=== PATIENT | female | born 1945 | race Caucasian/White ===

== ENCOUNTER 2018-10-01 13:35 | Outpatient (CLI) | payer MEDICARE ==
--- NOTE | 2018-10-01 14:46 | Mammography Report ---
Reason: ENCNTR SCREEN MAMMOGRAM FOR MALIGNANT NEOPLASM OF Procedure Date: 10/01/2018 Accession Number: [id number] / [id number] Procedure: MAC - Screening Mammo w/Miguel Angel CPT Code: FULL RESULT: EXAM: Screening Mammo w/Miguel Angel DATE: 10/01/2018 2:24 PM CLINICAL HISTORY: Routine screening. No reported personal history of breast cancer. Family history breast cancer in mother at age 84. TECHNIQUE: (B) - Bilateral CC and MLO views were obtained. COMPARISON: 08/12/2014 through 11/24/2009 PARENCHYMAL PATTERN: (D) - The breasts demonstrate heterogeneously dense fibroglandular parenchyma bilaterally. FINDINGS: Bilateral breasts: There are no suspicious masses, calcifications, or areas of distortion. IMPRESSION: Negative examination. BI-RADS category 1. RECOMMENDATION: (ANNUAL) - Recommend routine annual screening mammography. BI-RADS CATEGORY: (1) - Negative. STANDARD QUALIFYING STATEMENTS: 1. This examination was not reviewed with the aid of Computer-Aided Detection (CAD). 2. A negative or benign imaging report should not preclude biopsy if clinically suspicious findings are present. 3. Dense breasts may obscure an underlying neoplasm. 4. This examination was reviewed with the aid of 3D breast imaging (tomosynthesis).
== END 2018-10-01 13:36 | disposition home or self-care (01) ==
LOC: DI 13:35
PROVIDERS: ATTEND Internal Medicine
DX: Z12.31 Encounter for screening mammogram for malignant neoplasm of breast (principal); Z80.3 Family history of malignant neoplasm of breast
CPT/HCPCS: 77063; 77067

== ENCOUNTER 2018-10-01 13:37 | Outpatient (CLI) | payer MEDICARE ==
--- NOTE | 2018-10-02 09:49 | DEXA Report ---
Reason: SCREENING FOR OSTEOPOROSIS Procedure Date: 10/01/2018 Accession Number: [id number] / [id number] Procedure: DEX - Dexa Spine and/or Hip CPT Code: FULL RESULT: EXAM: Dexa Spine and/or Hip DATE: 10/01/2018 2:37 PM CLINICAL HISTORY: SCREENING FOR OSTEOPOROSIS TECHNIQUE: Dual energy x-ray absorptiometry (DXA) was performed on a [employer] System. Regions measured are the AP Spine, femoral neck, and if needed forearm. COMPARISON: None. In accordance with the International Society for Clinical Densitometry (ISCD) guidelines, data from previous exams may be reanalyzed using current recommendations and techniques. This is done to allow a more accurate basis for comparison with the current study. FINDINGS: The data for the lumbar spine is as follows: BMD (g/cm/cm) T-SCORE Z-SCORE REGION L1 1.015 -1.0 0.4 L2 1.062 -1.1 0.2 L3 1.176 -0.2 1.2 L4 1.255 0.5 1.8 TOTAL 1.138 -0.4 1.0 NOTE: All evaluable vertebrae are used for classification The data for the hip is as follows: BMD (g/cm/cm) T-SCORE Z-SCORE REGION Neck 1.010 -0.2 1.4 TOTAL 1.002 0.0 1.3 NOTE: The femoral neck or total proximal femur, whichever is lowest, is used for classification. IMPRESSION: THE WHO CLASSIFICATION BASED ON THE INTERNATIONAL REFERENCE STANDARD IS NORMAL. THE FRACTURE RISK IS NOT INCREASED. RECOMMENDATION: Patients with diagnosis of osteoporosis or osteopenia should have regular bone mineral density assessment. For those eligible for Medicare, routine testing is allowed once every 2 years. Testing frequency can be increased for patients who have rapidly progressing disease or for those who are receiving medical therapy to restore bone mass. COMMENT: World Health Organization (WHO) definitions for osteoporosis and osteopenia: NORMAL BMD: T-score at -1.0 or higher, fracture risk is low OSTEOPENIA BMD: T-score between -1.0 and -2.5, fracture risk is increased. OSTEOPOROSIS BMD: T-score at -2.5 or lower, fracture risk is high. National Osteoporosis Foundation recommends: 1. Obtain adequate dietary calcium (at least 1200 mg per day) and vitamin D (400-800 international units per day). 2. Participate, as appropriate, in regular weightbearing and muscle-strengthening exercise. 3. Avoid tobacco use and reduce alcohol and caffeine intake. 4. For more detailed information see the website at www.NOF.org.
== END 2018-10-01 13:38 | disposition home or self-care (01) ==
LOC: DI 13:37
PROVIDERS: ATTEND Internal Medicine
DX: Z13.820 Encounter for screening for osteoporosis (principal)
CPT/HCPCS: 77080

== ENCOUNTER 2018-11-28 16:16 | Outpatient (CLI) | payer MEDICARE ==
[2018-11-28 16:41] LABS: CREATININE 0.9 mg/dL (0.4-1.0)
[2018-11-28] MEDS ORDERED: IOVERSOL 320 50 ML VIAL ONE (17:13)
[2018-11-28] MEDS ORDERED: IOVERSOL 320 100 ML VIAL IVP ONE ×2 (17:13→18:23)
[2018-11-28] MEDS ORDERED: IOVERSOL 320 50 ML VIAL PO ONE (18:23)
--- NOTE | 2018-11-28 19:14 | CT Report ---
Reason: ABDOMINAL TENDERNESS Procedure Date: 11/28/2018 Accession Number: [id number] / [id number] Procedure: CT - Abdomen/Pelvis W CPT Code: FULL RESULT: EXAM: CT ABDOMEN AND PELVIS EXAM DATE: 11/28/2018 06:20 PM. CLINICAL HISTORY: ABDOMINAL TENDERNESS. COMPARISONS: None. TECHNIQUE: Routine helical CT imaging was performed through the abdomen and pelvis. IV contrast: OPTI 320 90ML. Enteric contrast: Positive. Reconstructions: Coronal and sagittal. In accordance with CT protocol optimization, one or more of the following dose reduction techniques were utilized for this exam: automated exposure control, adjustment of mA and/or KV based on patient size, or use of iterative reconstructive technique. FINDINGS: Lung Bases: Unremarkable. Liver: Normal. No masses. Gallbladder/Bile Ducts: The gallbladder is not definitely seen. There is no evidence of significant bile duct dilatation. Spleen: Normal. Pancreas: Normal. Adrenal Glands: Normal. Kidneys: Normal. No masses or hydronephrosis. Peritoneal Cavity/Bowel: Normal. No free fluid, free air or adenopathy. No masses or acute inflammatory process. The appendix is well visualized and normal. Pelvic Organs: Mild heterogeneity of the uterus which may be secondary to fibroids. No significant adnexal abnormality is are seen. Vasculature: No aneurysms or other significant abnormality. Bones: No significant abnormality. Other: None. IMPRESSION: Negative contrast enhanced CT of the abdomen and pelvis. No acute solid or hollow viscus organ abnormalities to account for the patient's presentation. ORION The call report notification system was initiated by Dr. Obed Chan at 07:12 PM on 11/28/2018.
== END 2018-11-28 16:17 | disposition home or self-care (01) ==
LOC: DI 16:16
PROVIDERS: ATTEND Internal Medicine
DX: R10.817 Generalized abdominal tenderness (principal)
CPT/HCPCS: 36415; 74177; 82565; Q9967

== ENCOUNTER 2019-01-14 10:10 | Day surgery (SDC) | payer MEDICARE ==
[2019-01-14] MEDS ORDERED: fentaNYL 250 MCG/5 ML VIAL IVP ONE (10:11)
[2019-01-14] MEDS ORDERED: MIDAZOLAM 2 MG/2 ML VIAL IVP ONE (10:11)
[2019-01-14] MEDS ORDERED: LACTATED RINGERS 1,000 ML IV ONE (10:40)
[2019-01-14 12:54] VITALS: BP 115/70
== END 2019-01-14 10:11 | disposition home or self-care (01) ==
LOC: SDS 10:10
PROVIDERS: ATTEND Internal Medicine Gastroenterology
PROC: 0DBF8ZX Excision of Right Large Intestine, Via Natural or Artificial Opening Endoscopic, Diagnostic (ICD-10-PCS; 2019-01-14)
PROC: 0DBG8ZX Excision of Left Large Intestine, Via Natural or Artificial Opening Endoscopic, Diagnostic (ICD-10-PCS; principal; 2019-01-14 11:30)
DX: Z09 Encounter for follow-up examination after completed treatment for conditions other than malignant neoplasm (principal); R19.7 Diarrhea, unspecified; K57.30 Diverticulosis of large intestine without perforation or abscess without bleeding; Z87.19 Personal history of other diseases of the digestive system; Z80.3 Family history of malignant neoplasm of breast
CPT/HCPCS: 45380; J7120

== ENCOUNTER 2019-05-22 12:46 | Outpatient (CLI) | payer MEDICARE | END 2019-05-22 12:47 | disposition critical access hospital (66) | LOC: EMS 12:46 | PROVIDERS: ATTEND Surgery | DX: R07.9 Chest pain, unspecified (principal); R06.02 Shortness of breath; R42 Dizziness and giddiness; M54.2 Cervicalgia; R68.84 Jaw pain | CPT/HCPCS: A0425; A0429 ==

== ENCOUNTER 2019-05-22 13:11 | Emergency (ER) | payer MEDICARE ==
[2019-05-22 13:43] LABS: BILIRUBIN,URINE NEGATIVE (NEGATIVE); GLUCOSE, URINE (UA) NEGATIVE (NEGATIVE); KETONES,URINE (UA) NEGATIVE (NEGATIVE); LEUKOCYTE ESTERASE, URINE NEGATIVE (NEGATIVE); NITRITE,URINE NEGATIVE (NEGATIVE); OCCULT BLOOD,URINE NEGATIVE (NEGATIVE); PROTEIN,URINE NEGATIVE (NEGATIVE); UROBILINOGEN,URINE 0.2 (NORMAL) E.U./dL (NORMAL)
[2019-05-22 13:44] LABS: CLARITY,URINE CLEAR (CLEAR)
[2019-05-22 13:51] LABS: BASOPHILS # (AUTO) 0.1 10^3/uL (0.0-0.1); BASOPHILS % (AUTO) 0.9 %; EOSINOPHILS # (AUTO) 0.1 10^3/uL (0.0-0.7); EOSINOPHILS % (AUTO) 2.2 %; HGB - HEMOGLOBIN 14.5 g/dL (12.0-16.0); LYMPHOCYTES # (AUTO) 1.3 10^3/uL (1.5-3.5); LYMPHOCYTES % (AUTO) 20.9 %; MEAN CORPUSCULAR HEMOGLOBIN 31.6 pg (27.0-31.0); MEAN CORPUSCULAR HGB CONC 33.5 g/dL (32.0-36.0); MEAN CORPUSCULAR VOLUME 94.3 fL (81.0-99.0); MONOCYTES # (AUTO) 0.5 10^3/uL (0.0-1.0); MONOCYTES % (AUTO) 7.2 %; NEUTROPHILS # (AUTO) 4.3 10^3/uL (1.5-6.6); NEUTROPHILS % (AUTO) 68.3 %; PLT - PLATELET COUNT 256 10^3/uL (130-450); RED BLOOD COUNT 4.59 10^6/uL (4.20-5.40); RED CELL DISTRIBUTION WIDTH 12.3 % (12.0-15.0); WHITE BLOOD COUNT 6.4 x10^3/uL (4.8-10.8)
[2019-05-22 14:04] LABS: ALBUMIN 4.4 g/dL (3.2-5.5); ALBUMIN/GLOBULIN RATIO 1.6 (1.0-2.2); BILIRUBIN,TOTAL 0.8 mg/dL (0.2-1.0); CALCIUM 9.2 mg/dL (8.5-10.3); CREATININE 0.9 mg/dL (0.4-1.0); TOTAL PROTEIN 7.1 g/dL (6.7-8.2)
[2019-05-22 14:15] LABS: CREATINE KINASE MB 1.3 ng/mL (0.6-6.3)
--- NOTE | 2019-05-22 15:30 | ED Physician Documentation ---
PD HPI CHEST PAIN - Stated complaint Stated Complaint: CHEST PX - Chief complaint Chief Complaint: Cardiac - History obtained from History obtained from: Patient - History of Present Illness Timing - onset: How many hours ago Timing - onset during: Light activity (she was driving and noted onset of central chest tightness/pain. Lasted about 15 minutes then improved. Pain radia nhung to left side of neck. She was concerned about heart related. So stopped at her physician office. Referred to ER for further evaluation.) Timing - duration: Minutes Timing - details: Abrupt onset, Now resolved (lasted about 15 minutes, resolved without intervention/treatment.). No: Still present Quality: Tightness, Aching, Pain Location: Substernal Radiation: Jaw, Neck Worsened by: No: Exertion, Inspiration Associated symptoms: No: Shortness of air, Nausea, Vomiting, Feeling faint / dizzy Similar symptoms before: Diagnosis (similar episodes dx as esophageal spasms. Had heart stress test in past 2 years. Has history of GERD/gastritis.) Review of Systems Constitutional: denies: Fever, Chills Nose: denies: Rhinorrhea / runny nose, Congestion Throat: denies: Sore throat Respiratory: denies: Cough GI: denies: Abdominal Pain, Nausea, Vomiting, Diarrhea Neurologic: denies: Generalized weakness, Near syncope PD PAST MEDICAL HISTORY - Past Medical History Cardiovascular: High cholesterol Respiratory: None Endocrine/Autoimmune: None GI: None : None HEENT: None Psych: None Musculoskeletal: None Derm: None - Past Surgical History Past Surgical History: Yes General: Cholecystectomy HEENT: Tonsil/Adenoidectomy - Present Medications Home Medications: Ambulatory Orders Medication Instructions Recorded Confirmed Nitroglycerin 0.4 mg SL ONCE PRN #1 bottle 05/22/19 Omeprazole 20 mg PO DAILY #30 capsule. 05/22/19 - Allergies Allergies/Adverse Reactions: Allergies Allergy/AdvReac Type Severity Reaction Status Date / Time No Known Drug Allergies Allergy Verified 05/22/19 13:21 - Social History Does the pt smoke?: No Smoking Status: Never smoker Does the pt drink ETOH?: Yes Does the pt have substance abuse?: No - Immunizations Immunizations are current?: No Immunizations: TDAP >10years/unknown - POLST Patient has POLST: No PD ED PE NORMAL - Vitals Vital signs reviewed: Yes - General General: Alert and oriented X 3, No acute distress, Well developed/nourished - HEENT HEENT: Pharynx benign - Neck Neck: Supple, no meningeal sign, No adenopathy - Cardiac Cardiac: RRR, No murmur - Respiratory Respiratory: No respiratory distress, Clear bilaterally - Abdomen Abdomen: Soft, Non tender - Derm Derm: Normal color, Warm and dry - Extremities Extremities: No edema, No calf tenderness / cord - Neuro Neuro: Alert and oriented X 3, No motor deficit, Normal speech Results - Vitals Vitals: Vital Signs - 24 hr 05/22/19 05/22/19 05/22/19 13:21 15:22 15:44 Temperature 36.5 C Heart Rate 73 72 Respiratory 14 23 Rate Blood Pressure 130/70 137/95 H Blood Pressure 142/80 H [Left] O2 Saturation 99 96 05/22/19 16:07 Temperature 36.5 C Heart Rate 70 Respiratory 18 Rate Blood Pressure 135/78 H Blood Pressure [Left] O2 Saturation 96 Oxygen O2 Source Room air - EKG (time done) 13:19 Rate: Rate (enter#) (61) Rhythm: NSR [place]: Normal Intervals: Normal UT QRS: Normal Ischemia: Normal ST segments. No: ST elevation c/w ischemia, ST depression - Labs Labs: Laboratory Tests 05/22/19 05/22/19 05/22/19 13:05 13:45 13:45 WBC RBC Hgb Hct MCV MCH MCHC RDW Plt Count MPV Neut # (Auto) Lymph # (Auto) [place] # (Auto) Eos # (Auto) Baso # (Auto) Absolute Nucleated RBC Nucleated RBC % Sodium 140 Potassium 3.4 L Chloride 104 Carbon Dioxide 27 Anion Gap 9.0 BUN 14 Creatinine 0.9 Estimated GFR (MDRD) 61 L Glucose 98 Calcium 9.2 Total Bilirubin 0.8 AST 18 ALT 18 Alkaline Phosphatase 81 Total Creatine Kinase 111 CK-MB (CK-2) 1.3 Troponin I High Sens < 2.3 L Total Protein 7.1 Albumin 4.4 Globulin 2.7 Albumin/Globulin Ratio 1.6 Lipase 44 Urine Color YELLOW Urine Clarity CLEAR Urine pH 6.0 Ur Specific [place] 1.010 Urine Protein NEGATIVE Urine Glucose (UA) NEGATIVE Urine Ketones NEGATIVE Urine Occult Blood NEGATIVE Urine Nitrite NEGATIVE Urine Bilirubin NEGATIVE Urine Urobilinogen 0.2 (NORMAL) Ur Leukocyte Esterase NEGATIVE Ur Microscopic Review NOT INDICATED Urine Culture Comments NOT INDICATED 05/22/19 13:45 WBC 6.4 RBC 4.59 Hgb 14.5 Hct 43.3 MCV 94.3 MCH 31.6 H MCHC 33.5 RDW 12.3 Plt Count 256 MPV 9.0 Neut # (Auto) 4.3 Lymph # (Auto) 1.3 L [place] # (Auto) 0.5 Eos # (Auto) 0.1 Baso # (Auto) 0.1 Absolute Nucleated RBC 0.00 Nucleated RBC % 0.0 Sodium Potassium Chloride Carbon Dioxide Anion Gap BUN Creatinine Estimated GFR (MDRD) Glucose Calcium Total Bilirubin AST ALT Alkaline Phosphatase Total Creatine Kinase CK-MB (CK-2) Troponin I High Sens Total Protein Albumin Globulin Albumin/Globulin Ratio Lipase Urine Color Urine Clarity Urine pH Ur Specific [place] Urine Protein Urine Glucose (UA) Urine Ketones Urine Occult Blood Urine Nitrite Urine Bilirubin Urine Urobilinogen Ur Leukocyte Esterase Ur Microscopic Review Urine Culture Comments PD MEDICAL DECISION MAKING - ED course Complexity details: considered differential (ECG and troponin are normal. She has had reflux and esophagitis symptoms with eating spicy food. Has had similar episodes Dx as esophageal spasms, and had normal cardiac stress test in the past 2 years. ), d/w patient Departure - Departure Disposition: Home, Self Care Clinical Impression: Esophageal spasm Chest pain Qualifiers: Chest pain type: precordial pain Qualified Code(s): R07.2 - Precordial pain Condition: Stable Record reviewed to determine appropriate education?: Yes Instructions: ED Chest Pain Atypical Unkn Cause, ED Spasm Esophageal Follow-Up: Sheila Huffman ARNP [Primary Care Provider] - Prescriptions: Nitroglycerin 0.4 mg SL ONCE PRN #1 bottle PRN Reason: Spasms Omeprazole 20 mg PO DAILY #30 capsule. Comments: Take an acid reducing medicine such as omeprazole daily for the next month or more at least. This will try to have less acid production so that your esophagus could have better healing and be less irritated. Presumably the esophageal spasms relate to underlying irritation. If you get another episode feeling like esophageal spasm, you can try antacid such as Tums Maalox or Mylanta combined with a nitroglycerin which helps relieve reduce esophageal spasm. See if those help for the symptoms when they occur. Follow-up with your primary care regarding further treatment and evaluation. No signs of heart attack based on your EKG and blood tests here today. Discharge Date/Time: 05/22/19 16:25
[2019-05-22 16:09] VITALS: BP 135/78
== END 2019-05-22 16:25 | disposition home or self-care (01) ==
LOC: EDUNIT# → ED 13:11
DX: K22.4 Dyskinesia of esophagus (principal); R07.2 Precordial pain
CPT/HCPCS: 36415; 80053; 81001; 81003; 82550; 82553; 83690; 84484; 85025; 87086; 93005; 99283; 99284

== ENCOUNTER 2020-04-26 14:43 | Outpatient (CLI) | payer MEDICARE ==
--- NOTE | 2020-04-26 16:51 | Ultrasound Report ---
PROCEDURE: Carotid Doppler Complete INDICATIONS: DIZZINESS AND GIDDINESS TECHNIQUE: Color and pulse Doppler interrogation was performed of both carotid systems, with image documentation and velocity measurements. COMPARISON: None. FINDINGS: Right side: Common carotid artery peak systolic velocity: 93 cm/sec. Internal carotid artery peak systolic velocity: 72 cm/sec. Internal carotid artery end diastolic velocity: 27 cm/sec. External carotid artery peak systolic velocity: 82 cm/sec. ICA/CCA peak systolic ratio: 0.8 . Scott scale imaging description: No visualized plaque. Percent internal carotid artery stenosis: No stenosis. . Vertebral artery: Flow direction is antegrade. Left side: Common carotid artery peak systolic velocity: 100 cm/sec. Internal carotid artery peak systolic velocity: 76 cm/sec. Internal carotid artery end diastolic velocity: 24 cm/sec. External carotid artery peak systolic velocity: 79 cm/sec. ICA/CCA peak systolic ratio: 0.8 . Scott scale imaging description: No visualized plaque. Percent internal carotid artery stenosis: No stenosis. . Vertebral artery: Flow direction is antegrade. IMPRESSION: No visualized internal carotid artery stenosis. The estimate of stenosis included in the report of the imaging study was calculated using the NASCET method Reviewed by: Suzanne Brown MD on 04/26/2020 4:49 PM PST Approved by: Suzanne Brown MD on 04/26/2020 4:49 PM PST Station ID: [id number]
== END 2020-04-26 14:44 | disposition home or self-care (01) ==
LOC: DI 14:43
PROVIDERS: ATTEND Registered Nurse
DX: R42 Dizziness and giddiness (principal)
CPT/HCPCS: 93880

== ENCOUNTER 2020-08-29 03:55 | Outpatient (CLI) | payer MEDICARE | END 2020-08-29 03:56 | disposition critical access hospital (66) | LOC: EMS 03:55 | DX: R42 Dizziness and giddiness (principal); R11.2 Nausea with vomiting, unspecified | CPT/HCPCS: A0425; A0427 ==

== ENCOUNTER 2020-08-29 04:21 | Emergency (ER) | payer MEDICARE ==
--- NOTE | 2020-08-29 04:21 | ED Physician Documentation ---
History of Present Illness - Stated complaint Stated Complaint: DIZZY/ VOMITING - History obtained from History obtained from: Patient, EMS - History of Present Illness Timing: Enter time (22:00), Last night Pain level max: 0 Pain level now: 0 Improved by: lying still Worsened by: ambulating - Additonal information Additional information: c/o sudden onset dizziness associated with sensation of room spinning. the description she provides is room spinning around her, associated with nausea and dry heaves. onset was 10 PM while at home at rest. 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 she says she had similar but milder symptoms in the past that were self-limited and thus she did not seek medical attention at the time, but during a subsequent routine visit with PMD, she mentioned the symptoms and underwent testing that included carotid dopplers which showed no occlusion nor stenosis; this was performed April 2020. she does not recall having other imaging performed such as CTH or MRI. she says she was diagnosed with TIA but notably she also had left-sided weakness with the dizziness on that previous episode. she denies any numbness or weakness tonight. she does c/o mild generalized headache. Review of Systems Constitutional: reports: Reviewed and negative Eyes: reports: Reviewed and negative Ears: reports: Reviewed and negative Cardiac: reports: Reviewed and negative Respiratory: reports: Reviewed and negative GI: reports: Nausea, Vomiting. denies: Abdominal Pain : denies: Dysuria, Frequency Musculoskeletal: reports: Reviewed and negative Neurologic: reports: Headache. denies: Generalized weakness, Focal weakness, Numbness PD PAST MEDICAL HISTORY - Past Medical History Past Medical History: Yes Neuro: TIA - Past Surgical History Past Surgical History: No - Present Medications Home Medications: Ambulatory Orders Medication Instructions Recorded Confirmed Meclizine HCl [Antivert] 1 tablet PO Q6H PRN #30 tab 08/29/20 Ondansetron Odt [Zofran] 4 mg TL Q6H PRN #14 tablet 08/29/20 - Allergies Allergies/Adverse Reactions: Allergies Allergy/AdvReac Type Severity Reaction Status Date / Time No Known Drug Allergies Allergy Verified 08/29/20 04:41 - Living Situation Living Arrangement: reports: At home PD ED PE NORMAL - Vitals Vital signs reviewed: Yes - General General: Alert and oriented X 3, Well developed/nourished, Other (NAD at rest but patient is very unsteady and needs assistance when standing and pivoting to transfer self from ambulance stretcher to ED stretcher. 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, No motor deficit, No sensory deficit, Normal speech Eye Opening: Spontaneous Motor: Obeys Commands Verbal: Oriented GCS Score: 15 Results - Vitals Vitals: Vital Signs - 24 hr 08/29/20 08/29/20 08/29/20 04:25 04:30 04:55 Temperature 36.1 C L Heart Rate 63 64 66 Respiratory 25 H 13 22 Rate Blood Pressure 129/102 H 138/68 H 121/64 O2 Saturation 100 98 97 08/29/20 08/29/20 08/29/20 05:20 06:09 06:55 Temperature Heart Rate 64 74 72 Respiratory 22 23 17 Rate Blood Pressure 115/99 H 118/69 120/74 O2 Saturation 98 98 99 Oxygen O2 Source Room air - EKG (time done) No standard instances Rate: Rate (enter#) (62) Rhythm: NSR [place]: LAD Intervals: Prolonged QT QRS: Poor R wave progression Ischemia: Normal ST segments, Non specific changes - Labs Labs: Laboratory Tests 08/29/20 08/29/20 05:20 05:20 WBC 7.2 RBC 4.37 Hgb 14.0 Hct 40.7 MCV 93.1 MCH 32.0 H MCHC 34.4 RDW 12.1 Plt Count 238 MPV 9.5 Neut # (Auto) 5.7 Lymph # (Auto) 0.9 L [place] # (Auto) 0.4 Eos # (Auto) 0.1 Baso # (Auto) 0.1 Absolute Nucleated RBC 0.00 Nucleated RBC % 0.0 Sodium 139 Potassium 4.8 Chloride 107 Carbon Dioxide 23 Anion Gap 9.0 BUN 15 Creatinine 0.8 Estimated GFR (MDRD) 70 L Glucose 118 H Calcium 9.5 Total Bilirubin 1.0 AST 34 ALT 19 Alkaline Phosphatase 69 Total Protein 7.0 Albumin 4.3 Globulin 2.7 Albumin/Globulin Ratio 1.6 Lipase 33 - Rads (name of study) CTA head Radiology: Prelim report reviewed, See rad report PD MEDICAL DECISION MAKING - ED course Complexity details: reviewed old records (I reviewed radiologists reading of carotid dopplers from April 2020), reviewed results, re-evaluated patient, considered differential, d/w patient ED course: unremarkable blood test results as well as CTA head. neck/carotid studies not performed considering presentation is that of isolated vertigo and recent normal carotid US study. she reported significant improvement in symptoms after Iv fluids, zofran, and PO meclizine. she was able to ambulate to and from bathroom without assistance although she did exhibit residual mild unsteady gait. she was advised to ambulate slowly and carefully until her symptoms completely resolve, return if worse, follow up with PMD, and to not drive until symptoms have completely resolved for at least 24 hours without medications unkess advised otherwise by her PMD Departure - Departure Disposition: 01 Home, Self Care Clinical Impression: Vertigo Condition: Good Instructions: ED Vertigo Unspecified Follow-Up: Sheila Huffman ARNP [Primary Care Provider] - Within 1 week Prescriptions: Meclizine HCl [Antivert] 1 tablet PO Q6H PRN #30 tab PRN Reason: Vertigo Ondansetron Odt [Zofran] 4 mg TL Q6H PRN #14 tablet PRN Reason: Nausea / Vomiting Discharge Date/Time: 08/29/20 07:27
[2020-08-29] MEDS ORDERED: ONDANSETRON 4 MG/2 ML VIAL IVP STA (04:38)
[2020-08-29] MEDS ORDERED: SODIUM CHLORIDE 0.9% 1,000 ML IV STA (04:38)
[2020-08-29] MEDS ORDERED: MECLIZINE 12.5 MG TABLET PO STA (04:38)
[2020-08-29] MEDS ORDERED: IOPAMIDOL-300 100 ML VIAL ONE (04:43)
--- OUTSIDE RECORDS SUMMARY | 2020-08-29 05:22 | EXTERNAL MEDICAL SUMMARY RPT | Continuity of Care Document ---
:1945 Demographics Phone Unavailable Preferred Language Unknown Marital Status Unknown Catholic Affiliation Unknown Race Unknown Ethnic Group Unknown Author Organization [facility] Address [address] [id number] Phone Social History date description facility [id number]
[2020-08-29 05:27] LABS: BASOPHILS # (AUTO) 0.1 10^3/uL (0.0-0.1); BASOPHILS % (AUTO) 0.8 %; EOSINOPHILS # (AUTO) 0.1 10^3/uL (0.0-0.7); EOSINOPHILS % (AUTO) 0.8 %; HCT - HEMATOCRIT 40.7 % (37.0-47.0); LYMPHOCYTES # (AUTO) 0.9 10^3/uL (1.5-3.5); LYMPHOCYTES % (AUTO) 12.7 %; MEAN CORPUSCULAR HGB CONC 34.4 g/dL (32.0-36.0); MEAN CORPUSCULAR VOLUME 93.1 fL (81.0-99.0); MEAN PLATELET VOLUME 9.5 fL (7.9-10.8); MONOCYTES # (AUTO) 0.4 10^3/uL (0.0-1.0); MONOCYTES % (AUTO) 5.7 %; NEUTROPHILS # (AUTO) 5.7 10^3/uL (1.5-6.6); NEUTROPHILS % (AUTO) 79.7 %; PLT - PLATELET COUNT 238 10^3/uL (130-450); RED BLOOD COUNT 4.37 10^6/uL (4.20-5.40); RED CELL DISTRIBUTION WIDTH 12.1 % (12.0-15.0); WHITE BLOOD COUNT 7.2 x10^3/uL (4.8-10.8)
[2020-08-29 05:43] LABS: ALBUMIN 4.3 g/dL (3.2-5.5); ALBUMIN/GLOBULIN RATIO 1.6 (1.0-2.2); CALCIUM 9.5 mg/dL (8.5-10.3); CREATININE 0.8 mg/dL (0.4-1.0); POTASSIUM 4.8 mmol/L (3.5-5.0)
[2020-08-29] MEDS ORDERED: IOPAMIDOL-300 100 ML VIAL IVP ONE (06:12)
[2020-08-29 06:56] VITALS: BP 120/74
--- NOTE | 2020-08-29 09:17 | CT Report ---
PROCEDURE: ANGIO HEAD W/WO INDICATIONS: L sided facial droop CONTRAST: IV CONTRAST: Isovue 300 ml: 100 PO CONTRAST: *NO PO CONTRAST TECHNIQUE: Precontrast 4.5 mm thick angled axial sections acquired from the foramen magnum to the vertex. Afte r the administration of intravenous contrast, 1 mm thick sections acquired through the [place] [facility] [place] is. Postcontrast 4.5 mm thick sections then re-acquired from the foramen magnum to the vertex. 3-di mensional kfuppoy-kkobxeibi-psgjsoauec (MIP) and/or volume rendering reformats were acquired of the c entral intracranial vasculature. For radiation dose reduction, the following was used: automated ex posure control, adjustment of mA and/or kV according to patient size. COMPARISON: Correlation is made with carotid ultrasound 04/26/2020 FINDINGS: Image quality: Excellent. Anterior circulation: Intracranial internal carotid arteries are normal in size and flow. The flow within the paired anterior cerebral arteries is normal and symmetric. The flow within the middle cer ebral arteries is normal and symmetric. The anterior communicating artery is not well seen. No aneu rysms are seen. Posterior circulation: Visualized portions of the vertebral arteries demonstrate normal caliber, and join to form a normal appearing basilar artery. Flow within the posterior cerebral arteries is norm al and symmetric. No aneurysms are seen. CSF spaces: Ventricles are normal in size and shape. Basal cisterns are patent. No extra-axial flu id collections. Brain: No midline shift. No intracranial bleeds or masses. Scott-white matter interface appears int act. Skull and face: Calvarium and facial bones appear intact, without suspicious lesions. Sinuses: Visualized sinuses and mastoids are clear. IMPRESSION: No significant intracranial abnormality is seen. No acute intracranial hemorrhage is seen. No significant intracranial arterial abnormalities are seen. Note: No significant discrepancy from the preliminary report. Reviewed by: Didier Guzman MD on 08/29/2020 8:16 AM JEY Approved by: Didier Guzman MD on 08/29/2020 8:16 AM JEY Station ID: [id number]
== END 2020-08-29 07:27 | disposition home or self-care (01) ==
LOC: EDUNIT# → ED 04:21
DX: R42 Dizziness and giddiness (principal)
CPT/HCPCS: 36415; 70496; 80053; 83690; 85025; 93005; 96361; 96374; 99284; A9270; Q9967

== ENCOUNTER 2021-02-02 12:44 | Outpatient (CLI) | payer MEDICARE ==
--- NOTE | 2021-02-07 09:36 | Mammography Report ---
BILATERAL DIGITAL SCREENING MAMMOGRAM 3D/2D WITH EXAGGERATED CC: 02/02/2021 CLINICAL: Family history of breast cancer. No prior exams were available for comparison. The tissue of both breasts is predominantly fatty. There is a possible 1.2 cm mass in the right breast anterior depth central to the nipple seen on the craniocaudal view only 5 cm from the nipple. There is a 0.5 cm mass in the left breast middle depth central to the nipple seen on the craniocaudal view only. No other significant masses or calcifications are seen in either breast. IMPRESSION: INCOMPLETE: NEEDS ADDITIONAL IMAGING EVALUATION The possible 1.2 cm mass in the right breast anterior depth central to the nipple seen on the cranioc audal view only is indeterminate. Additional views with possible ultrasound are recommended. The 0.5 cm mass in the left breast middle depth central to the nipple seen on the craniocaudal view o nly is indeterminate. Additional views with possible ultrasound are recommended. This exam was interpreted at Station ID: [id number]. NOTE: For mammograms, a report in lay terms will be sent to the patient. Approximately 15% of breast malignancies will not be visualized mammographically. In the management of a palpable breast mass, a negative mammogram must not discourage biopsy of a clinically suspicious lesion. Electronically Signed By: Saad Valdez M.D. jr/:02/03/2021 12:45:00 ACR BI-RADS Category 0: Incomplete 3340F PARENCHYMAL PATTERN: (F) - The breast(s) demonstrate(s) diffuse fatty replacement. BI-RADS CATEGORY: (0) - 0 Mammo and [place] [id number] Immediate follow-up LATERALITY: (B)
== END 2021-02-02 12:45 | disposition home or self-care (01) ==
LOC: DI.S 12:44
DX: Z12.31 Encounter for screening mammogram for malignant neoplasm of breast (principal); Z80.3 Family history of malignant neoplasm of breast; R92.8 Other abnormal and inconclusive findings on diagnostic imaging of breast

== ENCOUNTER 2021-03-04 08:05 | Outpatient (CLI) | payer MEDICARE ==
--- NOTE | 2021-03-07 08:50 | Ultrasound Report ---
LIMITED ULTRASOUND OF RIGHT BREAST: 03/04/2021 CLINICAL: Patient returns today to evaluate a focal asymmetry in the right breast. Comparison is made to exams dated: 03/04/2021 mammogram, 02/02/2021 mammogram, 10/01/2018 mammogram, mammogram, and 11/24/2009 mammogram - [facility]. Real-time ultrasound of the right breast retroareolar was performed. Scott scale images of the real-t carmen examination were reviewed. No significant abnormalities were seen sonographically in the right breast. Specifically, no finding to correspond to the patient's resolved screening mammographic abnormality. IMPRESSION: NEGATIVE There is no sonographic evidence of malignancy. Return to annual mammogram screening schedule is recommended. Findings and recommendations were conveyed to the patient at time of exam. This exam was interpreted at Station ID: [id number]. Electronically Signed By: Gloria ramos/:03/04/2021 10:25:55 Ultrasound BI-RADS: 1 Negative BI-RADS CATEGORY: (1) - 1 Mammogram [id number] return to screening LATERALITY: (B)
--- NOTE | 2021-03-07 08:50 | Ultrasound Report ---
LIMITED ULTRASOUND OF LEFT BREAST AND AXILLA: 03/04/2021 CLINICAL: Patient returns today to evaluate a focal asymmetry in the left breast. Comparison is made to exams dated: 03/04/2021 mammogram, 02/02/2021 mammogram, 10/01/2018 mammogram, mammogram, and 11/24/2009 mammogram - [facility]. Color flow and real-time ultrasound of the left breast 3-4 o'clock, and axilla regions were performe d. Scott scale images of the real-time examination were reviewed. There is a benign 0.8 cm x 0.6 cm x 0.3 cm lymph node in the left breast at 4 o'clock middle depth 6 cm from the nipple. This lymph node displays fatty hilum and posterior acoustic enhancement. This c orrelates with mammography findings. Color flow imaging demonstrates that there is no vascularity pr esent. No significant abnormalities were seen sonographically in the left axilla. IMPRESSION: BENIGN There is no sonographic evidence of malignancy. The 0.8 cm lymph node in the left breast correlates well with mammogram findings and is benign. Return to annual mammogram screening schedule is recommended. Findings and recommendations were conveyed to the patient at time of exam. This exam was interpreted at Station ID: [id number]. Electronically Signed By: Gloria ramos/:03/04/2021 10:29:32 Ultrasound BI-RADS: 2 Benign BI-RADS CATEGORY: (2) - 2 Mammogram [id number] return to screening LATERALITY: (B)
--- NOTE | 2021-03-07 08:50 | Mammography Report ---
BILATERAL DIGITAL DIAGNOSTIC MAMMOGRAM 3D/2D: 03/04/2021 CLINICAL: Patient returns today to evaluate an asymmetry in the right breast. Patient returns today t o evaluate an asymmetry in the left breast. Comparison is made to exams dated: 02/02/2021 mammogram, 10/01/2018 mammogram, 08/12/2014 mammogram, an d 11/24/2009 mammogram - [facility]. The tissue of both breasts is heterogeneously d ense. This may lower the sensitivity of mammography. There is a 6 mm irregular high density asymmetry with an indistinct and circumscribed margin in the l eft breast at 4 o'clock middle depth. This is confirmed with additional views and is more prominent compared to priors. No right breast abnormality on additional views to correspond to the reported screening mammogram asy mmetry. No other significant masses, calcifications, or other findings are seen in either breast. IMPRESSION: INCOMPLETE: NEEDS ADDITIONAL IMAGING EVALUATION The 6 mm irregular high density asymmetry in the left breast remains indeterminate. An ultrasound is recommended. There is no abnormality seen in the right breast to correspond with the screening mammography finding in the sub-areolar and anterior depth. Ultrasound is recommended for full evaluation of this area. Bilateral breast ultrasound was performed immediately following this exam. This exam was interpreted at Station ID: [id number]. NOTE: For mammograms, a report in lay terms will be sent to the patient. Approximately 15% of breast malignancies will not be visualized mammographically. In the management of a palpable breast mass, a negative mammogram must not discourage biopsy of a clinically suspicious lesion. Electronically Signed By: Gloria ramos/:03/04/2021 09:50:18 ACR BI-RADS Category 0: Incomplete 3340F PARENCHYMAL PATTERN: (D) - The breast(s) demonstrate(s) heterogeneously dense fibroglandular paradrienne jiménez. BI-RADS CATEGORY: (0) - 0 Ultrasound [id number] Immediate follow-up LATERALITY: (B)
== END 2021-03-04 08:06 | disposition home or self-care (01) ==
LOC: DI 08:05
PROVIDERS: ATTEND Registered Nurse
DX: R92.8 Other abnormal and inconclusive findings on diagnostic imaging of breast (principal)

== ENCOUNTER 2022-03-16 12:51 | Outpatient (CLI) | payer MEDICARE ==
--- NOTE | 2022-03-17 10:19 | Mammography Report ---
BILATERAL DIGITAL SCREENING MAMMOGRAM 3D/2D: 03/16/2022 CLINICAL: Routine screening. Comparison is made to exams dated: 03/04/2021 mammogram, 02/02/2021 mammogram, 10/01/2018 mammogram, mammogram, and 11/24/2009 mammogram - [facility]. Both breasts are heterogeneously dense, which may obscure small masses (category c / 51-75% glandular tissue). No significant masses, calcifications, or other findings are seen in either breast. There has been no significant interval change. IMPRESSION: NEGATIVE There is no mammographic evidence of malignancy. A 1 year screening mammogram is recommended. Based on the Tyrer Cuzick model (a risk assessment model) the patients lifetime risk is 10.6% and he r 10 year risk is 0.0%. According to the ACR, ACS, and NCCN guidelines, an annual breast MRI exam juan luis ng with mammogram is recommended if the patients lifetime risk is 20% or greater. This exam was interpreted at Station ID: [id number]. NOTE: For mammograms, a report in lay terms will be sent to the patient. Approximately 15% of breast malignancies will not be visualized mammographically. In the management of a palpable breast mass, a negative mammogram must not discourage biopsy of a clinically suspicious lesion. Electronically Signed By: Brian oleary/eb:03/16/2022 22:12:38 ACR BI-RADS Category 1: Negative 3341F PARENCHYMAL PATTERN: (D) - The breast(s) demonstrate(s) heterogeneously dense fibroglandular becky jiménez. BI-RADS CATEGORY: (1) - 1 RECOMMENDATION: (ANNUAL) - Recommend routine annual screening mammography. [id number] 1 year screening LATERALITY: (B)
== END 2022-03-16 12:52 | disposition home or self-care (01) ==
LOC: DI 12:51
PROVIDERS: ATTEND Registered Nurse
DX: Z12.31 Encounter for screening mammogram for malignant neoplasm of breast (principal)

== ENCOUNTER 2023-03-04 20:45 | Outpatient (CLI) | payer MEDICARE | END 2023-03-04 20:46 | disposition critical access hospital (66) | LOC: EMS 20:45 | DX: R42 Dizziness and giddiness (principal); R11.10 Vomiting, unspecified | CPT/HCPCS: A0425; A0427 ==

== ENCOUNTER 2023-03-04 21:09 | Emergency (ER) | payer MEDICARE ==
[2023-03-04] MEDS ORDERED: SODIUM CHLORIDE 0.9% 1,000 ML IV STA (21:17)
[2023-03-04] MEDS ORDERED: MECLIZINE 12.5 MG TABLET PO STA (21:25)
[2023-03-04 21:44] LABS: BASOPHILS # (AUTO) 0.1 10^3/uL (0.0-0.1); BASOPHILS % (AUTO) 0.9 %; EOSINOPHILS # (AUTO) 0.1 10^3/uL (0.0-0.7); EOSINOPHILS % (AUTO) 1.3 %; HGB - HEMOGLOBIN 13.8 g/dL (12.0-16.0); LYMPHOCYTES # (AUTO) 1.1 10^3/uL (1.5-3.5); LYMPHOCYTES % (AUTO) 14.1 %; MEAN CORPUSCULAR HEMOGLOBIN 30.8 pg (27.0-31.0); MEAN CORPUSCULAR HGB CONC 32.9 g/dL (32.0-36.0); MEAN CORPUSCULAR VOLUME 93.8 fL (81.0-99.0); MEAN PLATELET VOLUME 9.6 fL (7.9-10.8); MONOCYTES # (AUTO) 0.3 10^3/uL (0.0-1.0); MONOCYTES % (AUTO) 3.3 %; NEUTROPHILS # (AUTO) 6.1 10^3/uL (1.5-6.6); NEUTROPHILS % (AUTO) 79.7 %; PLT - PLATELET COUNT 227 10^3/uL (130-450); RED BLOOD COUNT 4.48 10^6/uL (4.20-5.40); RED CELL DISTRIBUTION WIDTH 12.7 % (12.0-15.0); WHITE BLOOD COUNT 7.7 x10^3/uL (4.8-10.8)
[2023-03-04 21:56] LABS: ALBUMIN 4.3 g/dL (3.2-5.5); ALBUMIN/GLOBULIN RATIO 1.9 (1.0-2.2); BILIRUBIN,TOTAL 0.5 mg/dL (0.2-1.0); CALCIUM 9.6 mg/dL (8.5-10.3); CREATININE 0.9 mg/dL (0.6-1.3); POTASSIUM 3.4 mmol/L (3.5-4.5); TOTAL PROTEIN 6.6 g/dL (6.4-8.9)
[2023-03-04] MEDS ORDERED: ONDANSETRON 4 MG/2 ML VIAL IVP STA (22:30)
[2023-03-04] MEDS ORDERED: POTASSIUM BICARB 25 MEQ TABLET PO STA (22:35)
[2023-03-04] MEDS ORDERED: diazePAM 5 MG TABLET PO STA (22:35)
--- NOTE | 2023-03-04 22:49 | ED Physician Documentation ---
History of Present Illness - Stated complaint Stated Complaint: VERTIGO, VOMITING - Chief complaint Chief Complaint: Neuro - History obtained from History obtained from: Patient - Additonal information Additional information: Patient is a 77-year-old female presenting for evaluation of vertigo with nausea and vomiting starting around 5:00 today. Patient has a history of vertigo but it has been a few years since her last episode so she does not currently have any meclizine. Describes this as a room spinning sensation. She reports no headache but does have sensitivity with lights and worse vertigo with head turning to the left. Denies recent illness. EMS administered 4 mg of IV Zofran as well as 250 mL of IV fluids. Denies chest pain or shortness of air. Review of Systems Constitutional: denies: Fever Nose: denies: Rhinorrhea / runny nose Cardiac: denies: Chest pain / pressure Respiratory: denies: Dyspnea GI: denies: Abdominal Pain Neurologic: denies: Headache PD PAST MEDICAL HISTORY - Past Medical History Cardiovascular: High cholesterol Respiratory: None Neuro: TIA Endocrine/Autoimmune: None GI: None : None HEENT: None Psych: None Musculoskeletal: None Derm: None - Past Surgical History Past Surgical History: No General: Cholecystectomy HEENT: Tonsil/Adenoidectomy - Present Medications Home Medications: Ambulatory Orders Medication Instructions Recorded Confirmed Meclizine HCl [Motion Sickness] 25 mg PO Q6H PRN #20 tablet 03/04/23 Ondansetron Odt [Zofran] 4 mg TL Q6H PRN #10 tablet 03/04/23 - Allergies Allergies/Adverse Reactions: Allergies Allergy/AdvReac Type Severity Reaction Status Date / Time No Known Drug Allergies Allergy Verified 03/04/23 21:16 - Social History Does the pt smoke?: No Smoking Status: Never smoker Does the pt drink ETOH?: Yes Does the pt have substance abuse?: No - Immunizations Immunizations are current?: No Immunizations: TDAP >10years/unknown - POLST Patient has POLST: No PD ED PE NORMAL - General General: Alert and oriented X 3, No acute distress, Well developed/nourished - HEENT HEENT: Atraumatic, PERRL, EOMI, Moist mucous membranes, Pharynx benign, Other (No rotary nystagmus ) - Neck Neck: Supple, no meningeal sign - Cardiac Cardiac: RRR, No murmur - Respiratory Respiratory: No respiratory distress, Clear bilaterally - Abdomen Abdomen: Soft, Non tender, Non distended - Derm Derm: Warm and dry - Extremities Extremities: No calf tenderness / cord - Neuro Neuro: Alert and oriented X 3, child care 2-12 intact, No motor deficit, No sensory deficit, Normal speech, Other (Normal gait) Results - Vitals Vitals: Vital Signs - 24 hr 03/04/23 03/04/23 03/04/23 21:10 22:00 23:30 Temperature 36.8 C Heart Rate 63 65 60 Respiratory 18 16 16 Rate Blood Pressure 120/64 144/82 H 124/69 O2 Saturation 100 95 97 03/05/23 03/05/23 00:00 00:45 Temperature 36.5 C 36.7 C Heart Rate 62 64 Respiratory 20 16 Rate Blood Pressure 119/72 129/69 O2 Saturation 95 99 Oxygen O2 Source Room air - Labs Labs: Laboratory Tests 03/04/23 03/04/23 21:36 21:36 WBC 7.7 RBC 4.48 Hgb 13.8 Hct 42.0 MCV 93.8 MCH 30.8 MCHC 32.9 RDW 12.7 Plt Count 227 MPV 9.6 Neut # (Auto) 6.1 Lymph # (Auto) 1.1 L Sterling # (Auto) 0.3 Eos # (Auto) 0.1 Baso # (Auto) 0.1 Absolute Nucleated RBC 0.00 Nucleated RBC % 0.0 Sodium 140 Potassium 3.4 L Chloride 106 Carbon Dioxide 26 Anion Gap 8.0 BUN 14 Creatinine 0.9 Estimated GFR (MDRD) 61 L Glucose 153 H Calcium 9.6 Total Bilirubin 0.5 AST 18 ALT 17 Alkaline Phosphatase 73 Total Protein 6.6 Albumin 4.3 Globulin 2.3 Albumin/Globulin Ratio 1.9 Lipase 37 PD Medical Decision Making - ED course Complexity details: reviewed results, re-evaluated patient, d/w patient ED course: Patient is a 77-year-old female presenting for evaluation of vertigo. She has had history of this in the past. Based on history and exam I suspect that this is related to a peripheral cause I do not see other symptoms to suggest a central cause for her vertigo. CBC, chemistries were obtained and reviewed with mild hypokalemia which was replaced orally. Patient was initially given IV fluids, Zofran and meclizine with some improvement. She was given additional Zofran as well as Valium with resolution of her symptoms and was able to ambulate without any difficulty. Patient counseled on continued supportive care as well as need for follow-up as well as advised on concerning symptoms to return for. 2315 - Patient reports feeling better. Is able to turn her head from side to side without any further dizziness. We will make sure that she is able to safely ambulate. 2356 - Patient able to ambulate without difficulty. Departure - Departure Disposition: Home, Self Care Clinical Impression: Vertigo Condition: Stable Instructions: ED Vertigo Unspecified Follow-Up: Sheila Huffman ARNP [Primary Care Provider] - Prescriptions: Meclizine HCl [Motion Sickness] 25 mg PO Q6H PRN #20 tablet PRN Reason: Dizziness Ondansetron Odt [Zofran] 4 mg TL Q6H PRN #10 tablet PRN Reason: Nausea / Vomiting Comments: You were evaluated and treated for vertigo. Your potassium level was slightly low so we did give you potassium replacement. We did also give you medications to help with vertigo including meclizine as well as an antinausea medication called Zofran. I sent prescriptions for both of these to [facility] in [place]. I would recommend close follow-up with Your primary care doctor. Return to the emergency department with any worsening symptoms. Forms: PCP List Discharge Date/Time: 03/05/23 01:11
[2023-03-05 00:55] VITALS: BP 129/69; O2SAT 99
== END 2023-03-05 01:11 | disposition home or self-care (01) ==
LOC: EDUNIT# → ED 21:09
DX: R42 Dizziness and giddiness (principal)
CPT/HCPCS: 36415; 80053; 83690; 85025; 96361; 96374; 99283; 99284; A9270

== ENCOUNTER 2023-06-28 15:03 | Outpatient (CLI) | payer MEDICARE ==
[2023-06-28 19:48] LABS: BASOPHILS # (AUTO) 0.1 10^3/uL (0.0-0.1); BASOPHILS % (AUTO) 0.8 %; EOSINOPHILS # (AUTO) 0.2 10^3/uL (0.0-0.7); EOSINOPHILS % (AUTO) 2.6 %; HCT - HEMATOCRIT 49.6 % (37.0-47.0); HGB - HEMOGLOBIN 15.5 g/dL (12.0-16.0); LYMPHOCYTES # (AUTO) 1.2 10^3/uL (1.5-3.5); LYMPHOCYTES % (AUTO) 16.3 %; MEAN CORPUSCULAR HEMOGLOBIN 30.6 pg (27.0-31.0); MEAN CORPUSCULAR HGB CONC 31.3 g/dL (32.0-36.0); MEAN PLATELET VOLUME 9.9 fL (7.9-10.8); MONOCYTES # (AUTO) 0.8 10^3/uL (0.0-1.0); MONOCYTES % (AUTO) 10.9 %; NEUTROPHILS # (AUTO) 5.1 10^3/uL (1.5-6.6); NEUTROPHILS % (AUTO) 69.3 %; PLT - PLATELET COUNT 186 10^3/uL (130-450); RED BLOOD COUNT 5.06 10^6/uL (4.20-5.40); RED CELL DISTRIBUTION WIDTH 13.2 % (12.0-15.0); WHITE BLOOD COUNT 7.4 x10^3/uL (4.8-10.8)
[2023-06-28 20:05] LABS: ALBUMIN 4.5 g/dL (3.2-5.5); ALBUMIN/GLOBULIN RATIO 1.6 (1.0-2.2); BILIRUBIN,TOTAL 0.5 mg/dL (0.2-1.0); CALCIUM 9.4 mg/dL (8.5-10.3); POTASSIUM 3.8 mmol/L (3.5-4.5); TOTAL PROTEIN 7.4 g/dL (6.4-8.9)
== END 2023-06-28 15:04 | disposition home or self-care (01) ==
LOC: LAB.S 15:03
PROVIDERS: ATTEND Emergency Medicine
DX: U07.1 COVID-19 (principal)
CPT/HCPCS: 36415; 80053; 85025

== ENCOUNTER 2023-07-31 13:53 | Outpatient (CLI) | payer MEDICARE ==
--- NOTE | 2023-08-01 09:41 | Mammography Report ---
BILATERAL DIGITAL SCREENING MAMMOGRAM 3D/2D: 07/31/2023 CLINICAL: Routine screening. Comparison is made to exams dated: 03/16/2022 mammogram, 03/04/2021 mammogram, 02/02/2021 mammogram, 10/01/2018 mammogram, and 08/12/2014 mammogram - [facility]. Both breasts are heterogeneously dense, which may obscure small masses (category c / 51-75% glandular tissue). No significant masses, calcifications, or other findings are seen in either breast. There has been no significant interval change. IMPRESSION: NEGATIVE There is no mammographic evidence of malignancy. A 1 year screening mammogram is recommended. Based on the Tyrer Cuzick model (a risk assessment model) the patient's lifetime risk is 8.6% and her 10 year risk is 0.0%. According to the ACR, ACS, and NCCN guidelines, an annual breast MRI exam ines g with mammogram is recommended if the patient's lifetime risk is 20% or greater. This exam was interpreted at Station ID: [id number]. NOTE: For mammograms, a report in lay terms will be sent to the patient. Approximately 15% of breast malignancies will not be visualized mammographically. In the management of a palpable breast mass, a negative mammogram must not discourage biopsy of a clinically suspicious lesion. Electronically Signed By: Mady Cagle M.D., PH.D eb/eb:07/31/2023 15:55:20 letter sent: No_Letter ACR BI-RADS Category 1: Negative 3341F PARENCHYMAL PATTERN: (D) - The breast(s) demonstrate(s) heterogeneously dense fibroglandular becky jiménez. BI-RADS CATEGORY: (1) - 1 RECOMMENDATION: (ANNUAL) - Recommend routine annual screening mammography. [id number] 1 year screening LATERALITY: (B)
== END 2023-07-31 13:54 | disposition home or self-care (01) ==
LOC: DI 13:53
PROVIDERS: ATTEND Registered Nurse
DX: Z12.31 Encounter for screening mammogram for malignant neoplasm of breast (principal); R92.333 Mammographic heterogeneous density, bilateral breasts

== ENCOUNTER 2023-12-11 10:23 | Outpatient (CLI) | payer MEDICARE ==
--- NOTE | 2023-12-11 15:07 | XRAY Report ---
PROCEDURE: Cervical Spine 2-3V INDICATIONS: CHRONIC NECK PAIN TECHNIQUE: 3 view(s) of the cervical spine were acquired. COMPARISON: None. FINDINGS: Bones: No fractures or dislocations to the C7-T1 level. The lateral masses of C1 appear intact on t he odontoid view. No suspicious bony lesions. Overall cervical straightening with trace retrolisthe sis of C5 on C6. Degenerative disc space narrowing most prominent C6-7. Multilevel uncovertebral arth ropathy. Soft tissues: No prevertebral soft tissue swelling. IMPRESSION: Multilevel degenerative changes most severe at C6-7. Reviewed by: Suzanne Brown MD on 12/11/2023 3:05 PM PDT Approved by: Suzanne Brown MD on 12/11/2023 3:05 PM PDT Station ID: [id number]
== END 2023-12-11 10:24 | disposition home or self-care (01) ==
LOC: DI.S 10:23
PROVIDERS: ATTEND Registered Nurse
DX: M47.812 Spondylosis without myelopathy or radiculopathy, cervical region (principal)

== ENCOUNTER 2024-01-09 08:44 | Outpatient (CLI) | payer MEDICARE ==
[2024-01-09 14:00] LABS: BASOPHILS # (AUTO) 0.1 10^3/uL (0.0-0.1); BASOPHILS % (AUTO) 1.3 %; EOSINOPHILS # (AUTO) 0.3 10^3/uL (0.0-0.7); HCT - HEMATOCRIT 45.1 % (37.0-47.0); HGB - HEMOGLOBIN 14.7 g/dL (12.0-16.0); LYMPHOCYTES # (AUTO) 1.5 10^3/uL (1.5-3.5); MEAN CORPUSCULAR HEMOGLOBIN 30.8 pg (27.0-31.0); MEAN CORPUSCULAR HGB CONC 32.6 g/dL (32.0-36.0); MEAN CORPUSCULAR VOLUME 94.5 fL (81.0-99.0); MEAN PLATELET VOLUME 10.1 fL (7.9-10.8); MONOCYTES # (AUTO) 0.5 10^3/uL (0.0-1.0); MONOCYTES % (AUTO) 8.6 %; NEUTROPHILS # (AUTO) 2.9 10^3/uL (1.5-6.6); NEUTROPHILS % (AUTO) 55.9 %; PLT - PLATELET COUNT 265 10^3/uL (130-450); RED BLOOD COUNT 4.77 10^6/uL (4.20-5.40); RED CELL DISTRIBUTION WIDTH 13.2 % (12.0-15.0); WHITE BLOOD COUNT 5.2 x10^3/uL (4.8-10.8)
[2024-01-09 14:15] LABS: ALBUMIN 4.3 g/dL (3.2-5.5); ALBUMIN/GLOBULIN RATIO 1.5 (1.0-2.2); ALKALINE PHOSPHATASE 68 IU/L (42-121); ALT ALANINE AMINOTRANSFERASE 17 IU/L (10-60); AST ASPARTATE AMINOTRANSFERASE 19 IU/L (10-42); BILIRUBIN,TOTAL 0.6 mg/dL (0.2-1.0); BUN - BLOOD UREA NITROGEN 19 mg/dL (6-20); CALCIUM 9.5 mg/dL (8.5-10.3); CARBON DIOXIDE - CO2 27 mmol/L (21-32); CHLORIDE 108 mmol/L (101-111); CHOL/HDL RATIO 3.3 (<4.4); CHOLESTEROL 229 mg/dL; CREATININE 0.8 mg/dL (0.6-1.3); GFR - MDRD 69 (>89); GLUCOSE 88 mg/dL (74-104); HDL CHOLESTEROL 69 mg/dL; LDL CHOLESTEROL,CALCULATED 125 mg/dL; LDL/HDL RATIO 1.8 (<4.4); POTASSIUM 3.8 mmol/L (3.5-4.5); SODIUM 140 mmol/L (135-145); TOTAL PROTEIN 7.2 g/dL (6.4-8.9); TRIGLYCERIDES 176 mg/dL; VLDL CHOLESTEROL 35 mg/dL
[2024-01-09 14:19] LABS: THYROID STIMULATING HORMONE 1.98 uIU/mL (0.34-5.60)
== END 2024-01-09 08:45 | disposition home or self-care (01) ==
LOC: LAB.S 08:44
PROVIDERS: ATTEND Internal Medicine
DX: I95.1 Orthostatic hypotension (principal); G44.209 Tension-type headache, unspecified, not intractable; E78.5 Hyperlipidemia, unspecified; E55.9 Vitamin D deficiency, unspecified; F41.9 Anxiety disorder, unspecified; F32.9 Major depressive disorder, single episode, unspecified
CPT/HCPCS: 36415; 80053; 80061; 82306; 83721; 84443; 85025